=== PATIENT | male | born 1995 | race Two or more races ===

== ENCOUNTER 2020-10-15 05:58 | Observation (INO) | payer OTHER ==
[~2020-10-15] VITALS: Ht 172.7 cm; Wt 68.0 kg
[2020-10-15] VITALS (14 sets, daily range): BP systolic 110–134; BP diastolic 56–90
[2020-10-15] MEDS ORDERED: HYDROmorphone 1mg/ml Carpuject IVP PRN (06:45)
[2020-10-15] MEDS ORDERED: Milk of Magnesia 30ml Ud ORAL PRN (06:45)
[2020-10-15] MEDS ORDERED: HYDROcodone/Acetamin 10/325 tab ORAL PRN (06:45)
[2020-10-15] MEDS ORDERED: Chloraseptic Spray 20mL Bottle ORAL PRN (06:45)
--- NOTE | 2020-10-15 08:28 | Anethesia Preoperative Eval ---
Anesthesia Pre-op PMH/ROS General Date of Evaluation: Oct 15, 2020 Time of Evaluation: 09:45 Anesthesiologist: Kali ASA Score: ASA 1 Mallampati Score Class I : Soft palate, uvula, fauces, pillars visible Class II: Soft palate, uvula, fauces visible Class III: Soft palate, base of uvula visible Class IV: Only hard plate visible Mallampati Classification: Class I Surgeon: Bibi Diagnosis: Back Pain Surgical Procedure: L4-5 Microdiscectomy Anesthesia History: none Family History: no anesthesia problems Allergies: Coded Allergies: No Known Allergies (Unverified , 10/15/20) Medications: see eMAR Patient NPO?: Yes Past Medical History Neurologic/Psychiatric: Reports: depression/anxiety Anesthesia Pre-op Phys. Exam Physician Exam Last Vital Signs Date Time Temp Pulse Resp B/P (MAP) Pulse Ox O2 Delivery O2 Flow Rate FiO2 10/15/20 07:20 Room Air 10/15/20 07:10 97.4 55 18 120/74 (89) 99 Constitutional: NAD Neurologic: CN 2-12 intact Cardiovascular: RRR Respiratory: CTA Gastrointestinal: S/NT/ND Airway Exam Mallampati Score: Class I MO: full ROM: full Teeth: intact Anesthesia Pre-op A/P Risk Assessment & Plan Assessment: ASA 1 Plan: GA, SED, GlideScope Status Change Before Surgery: No Pre-Antibiotics Dru Grams Ancef IV Given Within 1 Hr of Incision: Yes Time Given: 10:01 George Bass MD Oct 15, 2020 08:27
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
[2020-10-15] MEDS ORDERED: Hydromorphone 0.5mg/0.5ml inj IVP PRN (08:30)
[2020-10-15] MEDS ORDERED: fentaNYL 100 mcg/2 mL IV PRN (08:30)
[2020-10-15] MEDS ORDERED: Midazolam 2mg/2ml Inj IVP PRN (08:30)
[2020-10-15] MEDS ORDERED: Meperidine 25mg/1ml Inj (FOR RIGORS ONLY) IV PRN (08:30)
[2020-10-15] MEDS ORDERED: Labetalol 5mg/ml 20ml vial IV PRN (08:30)
[2020-10-15] MEDS ORDERED: HYDROcodone/Acetamin 5/325 tab ORAL PRN (08:30)
[2020-10-15] MEDS ORDERED: oxyCODONE HCL/Acetaminophen 5/325mg ORAL PRN (08:30)
[2020-10-15] MEDS ORDERED: Ketorolac 30mg Inj IV PRN ×2 (08:30)
[2020-10-15] MEDS ORDERED: LORazepam Inj 2mg/ml 1ml IV PRN (08:30)
[2020-10-15] MEDS ORDERED: DiphenhydrAMINE 50mg/ml Inj IVP PRN (08:30)
[2020-10-15] MEDS ORDERED: HYDROcodone/Acetamin 7.5/325 tab ORAL PRN (08:30)
[2020-10-15] MEDS ORDERED: Atropine Sulfate 0.4mg/ml inj IVP PRN (08:30)
[2020-10-15] MEDS ORDERED: Acetaminophen (Non formulary) 100 ML IV ONE (08:30)
[2020-10-15] MEDS ORDERED: LR 1000ml 1,000 ML IVLG SCH (08:30)
--- NOTE | 2020-10-15 08:38 | Immediate Post-Op Evaluation ---
Immediate Post-Op Evalulation Immediate Post-Op Evalulation Procedure: L4-5 Microdiscectomy Date of Evaluation: Oct 15, 2020 Time of Evaluation: 12:08 IV Fluids: 1000 LR Blood Products: 0 Estimated Blood Loss: 25 Urinary Output: 0 Blood Pressure Systolic: 114 Blood Pressure Diastolic: 57 Pulse Rate: 56 Respiratory Rate: 16 O2 Sat by Pulse Oximetry: 100 Temperature (Fahrenheit): 97.4 Pain Score (1-10): 2 Nausea: No Vomiting: No Complications 0 Patient Status: awake, reacts, patent, extubated, none Hydration Status: adequate Dru Grams Ancef IV Given Within 1 Hr of Incision: Yes Time Given: 10:01 George Bass MD Oct 15, 2020 08:38
--- NOTE | 2020-10-15 08:39 | 48 Hour Post Anesthesia Eval ---
Post Anesthesia Evaluation Procedure: L4-5 Microdiscectomy Date of Evaluation: Oct 15, 2020 Time of Evaluation: 14:12 Blood Pressure Systolic: 108 0: 56 Pulse Rate: 57 Respiratory Rate: 18 Temperature (Fahrenheit): 98 O2 Sat by Pulse Oximetry: 100 Airway: patent Nausea: No Vomiting: No Pain Intensity: 2 Hydration Status: adequate Cardiopulmonary Status: Stable Mental Status/LOC: patient returned to baseline Follow-up Care/Observations: 0 Post-Anesthesia Complications: 0 Follow-up care needed: ready to discharge George Bass MD Oct 15, 2020 08:39
[2020-10-15] MEDS ORDERED: Gelfoam Size TOPIC ONE (08:47)
[2020-10-15] MEDS ORDERED: Lidocaine 1% Plain 30 ml INJ ONE ×2 (08:47→08:48)
[2020-10-15] MEDS ORDERED: Thrombin 5000 units TOPIC ONE (08:47)
[2020-10-15] MEDS ORDERED: Bacitracin 50000 Units Vial ONE (08:47)
[2020-10-15] MEDS ORDERED: fentaNYL 100 mcg/2 mL IV ONE (08:49)
[2020-10-15] MEDS ORDERED: Lidocaine 1% MPF 10mg/ml 5ml ONE (08:49)
[2020-10-15] MEDS ORDERED: Sodium Chloride 10ml vial INJ ONE (08:49)
--- NOTE | 2020-10-15 09:20 | Pre-Procedure Note/Attestation ---
Pre-Procedure Note/Attestation Complete Prior to Procedure Planned Procedure: not applicable Procedure Narrative: L5-S1 decompression, microdiscectomy Indications for Procedure Pre-Operative Diagnosis: HNP, Back Pain, Radiculopathy Attestation I attest that I discussed the nature of the procedure; its benefits; risks and complications; and alternatives (and the risks and benefits of such alternatives), prior to the procedure, with the patient (or the patient's legal accounts receivable representative). I attest that, if there was a reasonable possibility of needing a blood transfusion, the patient (or the patient's legal accounts receivable representative) was given the [facility] standardized written summary, pursuant to the [place] Blood Safety Act ([place] Health and Safety Code # 1645, as amended). I attest that I re-evaluated the patient just prior to the surgery and that there has been no change in the patient's H&P, except as documented below: Ashok Mtz MD Oct 15, 2020 09:20
[2020-10-15] MEDS ORDERED: NS Irrig 1000ml ONE (10:00)
[2020-10-15] MEDS ORDERED: Neostigmine 1mg/ml 10ml Inj ONE (10:00)
[2020-10-15] MEDS ORDERED: Sterile Water Irrig 1000ml IRRIG ONE (10:00)
[2020-10-15] MEDS ORDERED: Rocuronium Bromide 50mg/5ml Inj IV ONE (10:00)
[2020-10-15] MEDS ORDERED: propofoL 1,000mg/100ml IV ONE (10:00)
[2020-10-15] MEDS ORDERED: Naloxone 0.4mg/ml Inj ONE (11:28)
[2020-10-15] MEDS ORDERED: Glycopyrrolate 0.2mg/ml 1ml Vial ONE (11:31)
--- NOTE | 2020-10-15 11:40 | Brief Operative Note ---
Immediate Post Operative Note Operative Note Pre-op Diagnosis: HNP, Back Pain, Radiculopathy Procedure: l5-s1 microdiscectomy bilateral l5 hemilaminotomy hihn power ssep Post-op Diagnosis: same as pre-op Findings: consistent w/pre-op dx studies Surgeon: Bibi BERKOWITZ Brown Sourer: Geetha CHURCH Anesthesiologist: Kali BERKOWITZ Anesthesia: general Specimen: yes Complications: none Condition: stable Fluids: anesthesia Estimated Blood Loss: minimal Drains: none Implant(s) used?: No Ashok Mtz MD Oct 15, 2020 11:40
[2020-10-15] MEDS ORDERED: Naloxone 0.4mg/ml Inj IVP PRN (11:45)
--- NOTE | 2020-10-15 13:20 | NUR ---
NURSE NOTES: Patient received from PACU via bed on O2 3LNC, in stable condition to room 420-2. Patient AOx4, calm, talkative. Belongings reviewed with patient and Barbara PICKARD. LR infusing to RFA, site asymptomatic. Lower back pain 04/06, denies need for pain medication, ice pack in place. Surgical dressing CDI. Neuro checks done, skin warm, wiggles, pulses palpable, no NT. Oriented patient to room, medical equipment and call light. Clear liquids provided. PT notified of patient's arrival and need PT eval today. Patient states he has his RX filled already at home, does not know the name or dose of the medication, states, "I don't usually take any medication for pain."Call light in reach, bed in lowest position, will continue to monitor. Addendum: 10/15/20 at 2046 by Saundra Javier RN Bilateral SCDs on.
--- NOTE | 2020-10-15 13:30 | NUR ---
NURSE NOTES: Per : discharge patient if patient void and ambulate
[2020-10-15] MEDS ORDERED: D5 1/2NS 1,000 ML IV SCH (14:00)
--- NOTE | 2020-10-15 14:06 | Diagnostic Imaging Report ---
INDICATION: Pain, intraoperative TECHNIQUE: Intraoperative imaging Fluoroscopy time: 4.7 seconds Total dose: 0.25838 mGym2 Total number of images: One COMPARISON: None FINDINGS: Intraoperative images demonstrate a surgical tool projected posterior to the L5 vertebral body. IMPRESSION: Intraoperative imaging, as described
--- NOTE | 2020-10-15 14:15 | NUR ---
PT EVALUATION NOTE Patient seen for initial evaluation and treatment initiated. Patient presents with lumbar pain and impaired functional mobility s/p lumbar laminectomy. Patient instructed in log roll technique for in/OOB and in back precautions. Patient able to perform bed mobility and transfers with SBA, able to ambulate 175 ft with SBA, no AD. Patient will benefit from skilled inpatient PT intervention for improved level of functional mobility and safety and to ensure compliance with back precautions. Anticipate discharge home once medically cleared by MD. Addendum: 10/15/20 at 1456 by ISIDORO CUNHA PT Amended: Links added.
--- NOTE | 2020-10-15 15:00 | NUR ---
NURSE NOTES: Patient voided 150 ml, tea clear, urine, without difficulty. No NV. Offered to order regular diet, patient refused, wants to eat at home.
--- NOTE | 2020-10-15 15:45 | NUR ---
NURSE NOTES: Discharge instructions reviewed with patient, verbalized understanding. RFA IV discontinued, no active bleeding. ID bracelet removed. Ambulated down to lobby with RN, gait steady, stable. All belongings/discharge instructions given to patient. Car service from Dr. Mtz office arrived to pick patient up and take him home. Discharged home at 1545.
[2020-10-15] MEDS ORDERED: ceFAZolin sod 1 GM in D5W 55 ML IV SCH (18:00)
[2020-10-15] MEDS ORDERED: Docusate 100mg cap ORAL SCH (18:00)
--- NOTE | 2020-10-15 19:59 | Operative Note - Dictated ---
DATE OF OPERATION: 10/15/2020 SURGEON: Ashok Mtz, PhD, MD COMPLETION MANAGER: RANJIT Carrasco ANESTHESIOLOGIST: George Bass MD ANESTHESIA: General with intubation. ESTIMATED BLOOD LOSS: Minimum. COMPLICATIONS: None. POSTOPERATIVE CONDITION: Good/stable. SPECIMENS: Disk fragments of L5-S1 to pathology. ADMITTING/PREOPERATIVE DIAGNOSIS: Lumbar herniated nucleus pulposus with radiculopathy/back pain. POSTOPERATIVE DIAGNOSIS: Lumbar herniated nucleus pulposus with radiculopathy/back pain. OPERATIVE PROCEDURE: 1. L5-S1 bilateral decompression with right L5-S1 microdiskectomy. 2. SSEP monitoring. 3. High-power magnification dissection. PROCEDURE IN DETAIL: The patient was brought to the operating room and in the supine position, general anesthesia with intubation was induced. IV antibiotics and IV Decadron were administered 30 minutes prior to incision time. The patient was carefully turned and positioned in the prone position. Lumbodorsal spine was sterilely prepped. Under sterile condition, a spinal needle was obliquely placed into the subcutaneous tissue only overlying the L5-S1 interval with a cross-table radiograph being obtained, interpreted by surgeon, demonstrating the correct level for further incision placement. Needle was removed. Back was re-sterilely prepped and draped free in usual sterile fashion. A longitudinal midline incision was sharply placed through dermis and epidermis over the involved interval. Electrocautery dissection was carried through the subcutaneous tissue to the level of the lumbodorsal fascia that was incised right and left to the midline over the L5 inferior hemilamina and superior S1. Marker was placed under sterile conditions and a cross-table image was obtained, interpreted by surgeon for decision of the appropriate level for further dissection. Position of the marker was recorded. Marker was removed. Retractor placement was followed with hemilaminotomy of bilateral inferior L5 and bilateral superior S1. Bleeding bone was cauterized with application of sterile wax. Dissection was carried right lateral to the exiting nerve root and dural tube under high-power magnification with identification of the disk space. Disk space was noted and the subligamentous herniated nucleus polyposis. Annulotomy was followed with diskectomy not exceeding 10 mm medial lateral, lateral medial, posteroanterior. No bleeding from the disk space occurred. Disk space was irrigated with antibiotic-containing saline and no further fragments identified. probe was placed through the foramen overlying the disk with no compression noted. SSEP monitoring remained stable. Dissection was carried left lateral on the exiting nerve root and dural tube to the level of disk space. The disk was not protruding. A placed through the foramen without compression of the nerve root. The incision was copiously irrigated with antibiotic-containing saline. No dural tears or leaks were noted at anytime during the procedure. No monitoring changes during the procedure. FloSeal was applied appropriately. Reapproximation was undertaken with Vicryl suture material on the lumbodorsal fascia and subcutaneous tissue. Dermis and epidermis were further reapproximated with same sutures. A sterile bandage was placed followed with application of tape to maintain the position. The patient was carefully turned from the prone to the supine position on the transport bed where he was awakened and extubated in the operating room and transported to postop recovery in good and stable condition. Ashok Mtz M.D. DR: Charline JOB#: [id number] CC:
== END 2020-10-15 15:45 | disposition home or self-care (01) ==
LOC: SUR 05:58 → 4E 12:43
DX: M51.17 Intervertebral disc disorders with radiculopathy, lumbosacral region (principal); F32.9 Major depressive disorder, single episode, unspecified; F41.9 Anxiety disorder, unspecified
CPT/HCPCS: 63030; 72020; 76000; 94003; 97116; 97162; 97530; J0131; J0690; J1100; J1885; J2001; J2250; J2310; J2405; J2704; J2710; J3010; U0004; 94150; G0378; J2180